=== PATIENT | male | born 1950 | race Caucasian/White ===

== ENCOUNTER 2023-03-02 05:55 | Day surgery (SDC) | payer MEDICARE, SELFPAY ==
[2023-02-20 09:01] VITALS: BMI 21.1
[2023-02-20 12:58] VITALS: BMI 20.9
[2023-03-02 06:45] VITALS: BMI 20.9
[2023-03-02 06:46] VITALS: BP 103/66; PULSE 64; RESP 14; TEMP 36.8; O2SAT 100
--- NOTE | 2023-03-02 07:14 | WPDANESEPPF ---
Anes - Initial Pre Proc Eval Procedure: Operation Date: 03/02/23 08:00 Proposed Procedures p Esophagogastroduodenoscopy - Roosevelt Montero MD s Diagnostic Colonoscopy - Roosevelt Montero MD Date/Time: 03/02/23 07:14 Surgeon: Roosevelt Montero MD Pre Op Diagnosis: Unspecified Abdominal Pain, Melena Patient Data Age: 72 Gender: M Height: 1.68 m Weight: 58.9 kg Last Vital Signs Temp 36.8 C 03/02/23 06:46 Pulse 64 03/02/23 06:46 Resp 14 03/02/23 06:46 BP 103/66 03/02/23 06:46 Pulse Ox 100 03/02/23 06:46 O2 Del Method Room Air 03/02/23 06:46 Allergies Allergy/AdvReac Type Severity Reaction Status Date / Time No Known Allergies Allergy Verified 03/02/23 06:42 Home Medications Medication Instructions Recorded Confirmed Type montelukast 10 mg tablet 10 mg PO DAILY 02/19/23 03/02/23 History naproxen sodium 220 mg capsule 220 mg PO BID PRN Mild Pain (Scale 02/19/23 03/02/23 History Score 1-4) pantoprazole 40 mg tablet,delayed 40 mg PO DAILY 02/19/23 03/02/23 History release polyethylene glycol 3350 17 17 g PO DAILY 02/19/23 03/02/23 History gram/dose oral powder (Miralax) trazodone 50 mg tablet 50 mg PO DAILY 02/19/23 03/02/23 History Patient hx anesthesia problems: none Family hx anesthesia problems: none Results Review: All pre-operative results and documents have been reviewed as part of the pre-operative evaluation. 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 Grandparent , age 60 Colon cancer Social History Social History (Updated 02/19/23 @ 11:04 by Joan Drummond MA) Smoking status: Former smoker Alcohol intake: former Substance use: unknown Substance use type: marijuana Living arrangements: with family Spiritual care concerns: No Anes - Eval Final PreProcedure Day of Procedure 03/02/23 07:14 Patient weight: normal Heart: regular rate and rhythm Lungs: clear to auscultation and normal air movement Airway: Mallampati scale class II Neurological: alert and oriented Last oral intake: >/= 8 hours ASA classification: II Emergent: no Anesthetic plan: proceed Anesthesia type and monitoring: general GIVS and standard monitoring Results Review: All pre-operative results and documents have been reviewed as part of the pre-operative evaluation. Informed Consent: The patient's anesthetic plan and its attendant risks and benefits were discussed with the patient/family/POA. Questions were solicited and answers provided to the satisfaction of the patient/family/POA.
[2023-03-02] MEDS: LACTATED RINGERS 1,000 ML 150 ML IV CONT (07:26)
--- NOTE | 2023-03-02 07:40 | PM.HPGS ---
History of Present Illness History of Present Illness Consent: Risks, benefits, and alternatives have been discussed and questions answered. Patient agrees to proceed with procedure. Chief complaint: Unspecified Abdominal Pain, Melena Narrative: Cole Aleman is a 72 year old male Presents for both colonoscopy and EGD. Patient has a distant history of non-Hodgkin's lymphoma. He underwent a splenectomy in 2015. Patient reports sent Sara has felt very weak. He may dark stools intermittently. Planes of difficulty swallowing with solid foods catching in his throat. He describes a rather vague diffuse abdominal discomfort. For this reason patient referred for both colonoscopy and EGD. some weight. He denies any overt weight loss. He denies any bruising or bleeding elsewhere . Recent lab work recur soon iron deficiency anemia. Review of Systems Review of Systems: Review of systems noncontributory. [facility] Past Medical History Medical History (Updated 03/02/23 @ 07:43 by Roosevelt Montero MD) Abdominal pain Gastric varices without bleeding Diagnosed in 2008 History of lymphoma 2008 Surgical History Surgical History (Updated 02/19/23 @ 13:09 by Carlos Jack MD) Acquired absence of spleen Splenectomy in 2008 and second splenectomy in Jun. 2015 History of tonsillectomy as a child Family History Family History (Updated 02/19/23 @ 13:52 by Carlos Jack MD) Father Lung cancer Mother , unknown cause of No problems noted. Grandparent , age 60 Colon cancer Social History Social History (Updated 02/19/23 @ 11:04 by Joan Drummond MA) Smoking status: Former smoker Alcohol intake: former Substance use: unknown Substance use type: marijuana Living arrangements: with family Spiritual care concerns: No Meds Home Medications and Allergies Home Medications Medication Instructions Recorded Confirmed Type montelukast 10 mg tablet 10 mg PO DAILY 02/19/23 03/02/23 History naproxen sodium 220 mg capsule 220 mg PO BID PRN Mild Pain (Scale 02/19/23 03/02/23 History Score 1-4) pantoprazole 40 mg tablet,delayed 40 mg PO DAILY 02/19/23 03/02/23 History release polyethylene glycol 3350 17 17 g PO DAILY 02/19/23 03/02/23 History gram/dose oral powder (Miralax) trazodone 50 mg tablet 50 mg PO DAILY 02/19/23 03/02/23 History Allergies Allergy/AdvReac Type Severity Reaction Status Date / Time No Known Allergies Allergy Verified 03/02/23 06:42 Vital Signs Vital Signs - 24 hr 03/02/23 06:46 Temperature 98.2 F Pulse Rate 64 Respiratory Rate 14 Blood Pressure 103/66 Pulse Oximetry 100 Oxygen Delivery Room Air Exam Narrative: Physical exam reveals patient to be alert. Vital signs stable. HEENT exam is unremarkable. Patient is anicteric. Lungs are clear to auscultation and Percussion.heart is without murmur or extra sounds. Abdomen bowel sounds are present soft nontender with no organomegaly. Renal rectal exam is normal. Assessment and Plan Assessment and plan (1) Abdominal pain: Qualifiers: Abdominal location: unspecified location Qualified Code(s): R10.9 - Unspecified abdominal pain Code(s): R10.9 - Unspecified abdominal pain Status: Acute Assessment and Plan: Patient has rather vague abdominal discomfort. For this reason both colonoscopy and EGD are advised. (2) History of lymphoma: Code(s): Z85.72 - Personal history of non-Hodgkin lymphomas Status: Acute Assessment and Plan: Distant history of lymphoma. Appears to be resolved at present. (3) CHRISTOPHER (iron deficiency anemia): Code(s): D50.9 - Iron deficiency anemia, unspecified Status: Acute Assessment and Plan: Patient has iron deficient indices. Ferritin was not evaluated. Stool Hemoccult not obtain but patient does have history of dark stools suggesti
[2023-03-02 08:42] VITALS: BP 111/65; PULSE 50; RESP 18; O2SAT 100
[2023-03-02 08:52] VITALS: BP 122/60; PULSE 54; RESP 18; O2SAT 100
[2023-03-02 09:02] VITALS: BP 125/62; PULSE 51; RESP 18; O2SAT 100
--- NOTE | 2023-03-02 09:56 | WPDANESPN ---
Anes - Prog Note Post-Op Date/Time: 03/02/23 09:56 Cardiovascular status: normal Respiratory status: normal Airway patency: baseline Mental status: baseline Post-Op hydration status: normal Vital Signs: Last Vital Signs Temp 36.8 C 03/02/23 06:46 Pulse 51 L 03/02/23 09:02 Resp 18 03/02/23 09:02 BP 125/62 03/02/23 09:02 Pulse Ox 100 03/02/23 09:02 O2 Del Method Room Air 03/02/23 09:02 Pain Score (VAS): 0 I/O: Intake & Output 03/01/23 03/02/23 03/02/23 23:59 07:59 15:59 Intake Total 300 Balance 300 Post-procedural complaints: none Patient Feedback: Patient satisfied with anesthetic care. Other Findings: Patient vital signs back to baseline. Patient denies nausea and vomiting. Patient's pain under control. Patient OK for discharge.
== END 2023-03-02 09:38 | disposition home or self-care (01) ==
PROVIDERS: PCP Family Medicine; Visit Provider Internal Medicine Gastroenterology
PROC: 0DJ08ZZ Inspection of Upper Intestinal Tract, Via Natural or Artificial Opening Endoscopic (ICD-10-PCS; CPT 43235; principal; 2023-03-02 08:00)
PROC: 0DJD8ZZ Inspection of Lower Intestinal Tract, Via Natural or Artificial Opening Endoscopic (ICD-10-PCS; CPT 45378; 2023-03-02 08:00)
DX: D50.9 Iron deficiency anemia, unspecified (principal); D37.8 Neoplasm of uncertain behavior of other specified digestive organs; K64.8 Other hemorrhoids; R13.19 Other dysphagia
CPT/HCPCS: 45380; 43450

== ENCOUNTER 2023-03-02 09:00 | Outpatient (NON) | payer MEDICARE, SELFPAY | END 2023-03-02 09:01 | disposition home or self-care (01) | PROVIDERS: PCP Family Medicine; Visit Provider Internal Medicine Gastroenterology | DX: C18.0 Malignant neoplasm of cecum (principal); K21.9 Gastro-esophageal reflux disease without esophagitis | CPT/HCPCS: 88305 ==

== ENCOUNTER 2023-03-02 09:21 | Outpatient (CLI) | payer MEDICARE, SELFPAY ==
[2023-03-02 19:31] LABS: Alanine Aminotransferase 14 U/L (6-50); Albumin Level 4.1 g/dL (3.5-5.1); Alkaline Phosphatase 76 U/L (38-126); Aspartate Amino Transferase 63 U/L (17-59); Bilirubin,Total 0.7 mg/dL (0.2-1.3)
[2023-03-02 19:59] LABS: Carcinoembryonic Antigen 1.9 ng/mL (0.0-3.0)
[2023-03-02 20:17] LABS: Hematocrit 27.1 % (42.0-52.0); Hemoglobin 8.3 g/dL (14.0-18.0); Mean Corpuscular HGB Conc 30.6 g/dl (32-36); Mean Corpuscular Hemoglobin 24.5 pg (26-34); Mean Corpuscular Volume 79.9 fl (80-100); Platelet Count Result 358 k/mm3 (150-375); Red Blood Count 3.39 M/mm3 (4.6-6.20); Red Cell Distribution Width 17.1 % (11.5-14.5); White Blood Count 5.9 K/mm3 (4.5-10.0)
[2023-03-02 21:19] LABS: Band Neutrophils Percent 1 % (0-6); Eosinophils Absolute Manual 0.47 K/mm3 (0.02-0.5); Eosinophils Percent Manual 8 % (0-4); Lymphocytes Absolute Manual 1.18 K/mm3 (1.1-4.5); Lymphocytes Percent Manual 20 % (18-44); Monocytes Absolute Manual 0.35 K/mm3 (0.1-0.90); Monocytes Percent Manual 6 % (3-9); Neutrophils Absolute Manual 3.89 K/mm3 (1.3-6.7); Neutrophils Percent Manual 65 % (46-73); Total Cells Counted 100
[2023-03-02 21:21] LABS: Anisocytosis 1+ (NORMAL); Platelet Estimate Adequate (Adequate); Poikilocytosis 1+ (NORMAL)
[2023-03-02 21:23] LABS: Ovalocytes 1+ (NORMAL); Target Cells 1+ (NORMAL)
[2023-03-02 21:24] LABS: Acanthocytes 1+ (NORMAL); Burr Cells 1+ (NORMAL)
[2023-03-02 21:33] LABS: Schistocytes 1+ (NORMAL)
== END 2023-03-02 09:22 | disposition home or self-care (01) ==
PROVIDERS: Internal Medicine Gastroenterology; PCP Family Medicine; Visit Provider Physician Assistant Surgical
DX: R10.9 Unspecified abdominal pain (principal)
CPT/HCPCS: 36415; 80076; 82378; 85025; 88305

== ENCOUNTER → 2023-03-09 09:03 | Outpatient (CLI) | payer MEDICARE, SELFPAY ==
--- NOTE | ~2023-03-09 | CT_ITS ---
CT of the Abdomen and Pelvis: Indication: Colon cancer Technique: 2.5 mm axial scans were obtained through the abdomen and pelvis following intravenous adm inistration of 100 cc of Omnipaque 350. Dose reduction technique was used on this scan by utilizing a utomated exposure control and iterative reconstruction technique. The dose-length product (DLP) was 2 88.47 mGy-cm. COMPARISON: 11/04/2018 Findings: Scans through the lung bases are unremarkable. There are numerous hypodense hepatic masses scattered throughout the liver, consistent with metastati c disease, with largest individual lesion measuring approximately 3.5 cm in diameter. The pancreas, g allbladder, adrenals and kidneys are within normal limits. Patient is status post splenectomy with pr obable splenule/splenosis. There are atherosclerotic calcifications of the aorta. No lymphadenopathy . There is probable area of circumferential wall thickening of the hepatic flexure/proximal transverse colon, which could reflect colonic adenocarcinoma. No claire bowel obstruction clearly evident. Images through the pelvis were performed. Urinary bladder unremarkable. There is a 3.4 x 2.3 cm area of avid enhancement in the left side of the prostate gland. No ascites. Impression: Area of segmental wall thickening at the hepatic flexure/proximal transverse colon, consistent with c olonic adenocarcinoma. Numerous hepatic metastases, as detailed above. 3.4 x 2.3 cm area of avid enhancement within the left side of the prostate gland, indeterminate. Prim sang prostatic neoplasm is not excluded. Correlate clinically. Consider additional workup as indicated . Reviewed, dictated and finalized at [facility]. Impression: Area of segmental wall thickening at the hepatic flexure/proximal transverse co esther, consistent with colonic adenocarcinoma. Numerous hepatic metastases, as detailed above. 3.4 x 2.3 cm area of avid enhancement within the left side of the prostate glan d, indeterminate. Primary prostatic neoplasm is not excluded. Correlate clinica lly. Consider additional workup as indicated.
[2023-03-09 10:21] LABS: Estimated Glomerular Filt Rate > 60
== END ==
PROVIDERS: Visit Provider Surgery
DX: C18.2 Malignant neoplasm of ascending colon (principal); K63.89 Other specified diseases of intestine
CPT/HCPCS: 74177; Q9967

== ENCOUNTER 2023-03-10 08:01 | Outpatient (CLI) | payer MEDICARE, SELFPAY ==
--- NOTE | 2023-03-10 09:19 | ECG_ITS ---
Measurements Intervals [place] Rate: 51 P: 94 CO: 165 QRS: 58 QRSD: 88 T: 73 QT: 441 QTc: 409 Interpretive Statements SINUS BRADYCARDIA WITH OCCASIONAL SUPRAVENTRICULAR PREMATURE COMPLEXES NO PREVIOUS ECG AVAILABLE FOR COMPARISON Electronically Signed On 03-10-2023 15:01:41 CDT by Luiza Garcia M.D.
[2023-03-10 09:37] LABS: Hematocrit 28.1 % (42.0-52.0); Hemoglobin 8.8 g/dL (14.0-18.0)
== END 2023-03-10 08:02 | disposition home or self-care (01) ==
LOC: ANHSURGERY 08:06
PROVIDERS: Anesthesiology; PCP Family Medicine; Visit Provider Surgery
DX: Z01.818 Encounter for other preprocedural examination (principal); C18.2 Malignant neoplasm of ascending colon; R93.1 Abnormal findings on diagnostic imaging of heart and coronary circulation
CPT/HCPCS: 36415; 85014; 85018; 86850; 86900; 86901; 93005

== ENCOUNTER 2023-03-11 18:35 | Emergency (ER) | payer MEDICARE, SELFPAY ==
[2023-03-11] VITALS (8 sets, daily range): BP systolic 120–138; BP diastolic 47–71; PULSE 54–67; RESP 15–18; TEMP 36.6; O2SAT 97–100
--- NOTE | ~2023-03-11 | CT_ITS ---
EXAMINATION: CT thoracic lumbar wo con DATE: 03/11/2023 22:19 INDICATION: Mid back pain. Fall. TECHNIQUE: Computed tomography (CT) of the thoracic and lumbar spine was performed without intravenou s contrast. Automated exposure control and iterative reconstruction technique were employed. The dose -length product was 456.21 mGy-cm. COMPARISON: CT abdomen and pelvis 03/09/2023, chest CT 11/04/2018 FINDINGS: CT THORACIC SPINE: A calcified left lung nodule and calcified left hilar lymph nodes are consistent w ith old granulomatous disease. There is mild scarring at the lung apices. There is a 10 mm nodule in right lung upper lobe, stable from 11/04/2018, likely benign. There are multiple hypodense masses in t he liver that are better seen on the CT from 03/09/2023. There is 5 degrees dextrocurvature of thorac ic spine. There is kyphosis of thoracic spine. There is mild chronic anterior wedging of multiple cesar tebral bodies. There is a compression fracture of T12 without height loss. There are bridging endplat e osteophytes at multiple levels in the spine, consistent with diffuse idiopathic skeletal hyperostos is (DISH). There is multilevel facet joint osteoarthritis. There is multilevel mild neural foraminal stenosis bilaterally. On the left, there is moderate neural foraminal stenosis at T10-T11. There is m ild central canal stenosis at T6-T7. CT LUMBAR SPINE: There is focal wall thickening of hepatic flexure of the colon, consistent with prim sang malignancy. Bone alignment is normal. There is mild chronic anterior wedging of L1 vertebral body . There is mildly decreased disc height at L4-L5 and severely decreased disc height at L5-S1. The fol lowing disc levels are specifically discussed: L1-L2: The disc does not extend beyond the endplate margin. There is mild bilateral facet joint osteo arthritis. There is mild right neural foraminal stenosis. There is no central canal stenosis. L2-L3: The disc does not extend beyond the endplate margin. There is mild bilateral facet joint hyper trophy. There is mild right neural foraminal stenosis. There is no central canal stenosis. L3-L4: The disc is bulging. There is mild bilateral facet joint osteoarthritis. There is mild bilater al neural foraminal stenosis. There is mild central canal stenosis. L4-L5: The disc is bulging. There is severe bilateral facet joint osteoarthritis. There is moderate b ilateral neural foraminal stenosis. There is mild central canal stenosis. L5-S1: The disc is bulging. There is severe bilateral facet joint osteoarthritis. There is moderate b ilateral neural foraminal stenosis. There is mild central canal stenosis. IMPRESSION: 1. Acute T12 compression fracture. 2. Moderate thoracolumbar spondylosis. 3. DISH. 4. Colon mass, consistent with primary malignancy. Liver masses, consistent with metastatic disease. Reviewed, dictated and finalized at location E. IMPRESSION: 1. Acute T12 compression fracture. 2. Moderate thoracolumbar spondylosis. 3. DISH. 4. Colon mass, consistent with primary malignancy. Liver masses, consistent wit h metastatic disease.
--- NOTE | 2023-03-11 21:31 | ED.FALL ---
HPI - Fall General Chief Complaint: Fall Stated Complaint: fall off 6 ft ladder Time Seen by Provider: 03/11/23 21:17 History of Present Illness HPI Narrative: Patient is a 72-year-old male presenting after falling off a ladder. Patient states that he was about 6 feet up when the ladder slipped and he fell straight back landing on his mid back. He did not strike his head or lose consciousness. States that he immediately had severe mid back pain. No numbness or weakness. No saddle anesthesia or loss of bladder or bowels. He has been able to ambulate but he continues to have a lot of pain so he came in for evaluation. No further complaints. Related Data Home Medications Medication Instructions Recorded Confirmed montelukast 10 mg tablet 10 mg PO DAILY 02/19/23 03/10/23 naproxen sodium 220 mg capsule 220 mg PO DAILY PRN Mild Pain 02/19/23 03/10/23 (Scale Score 1-4) pantoprazole 40 mg tablet,delayed 40 mg PO DAILY 02/19/23 03/10/23 release polyethylene glycol 3350 17 17 g PO DAILY 02/19/23 03/10/23 gram/dose oral powder (Miralax) trazodone 50 mg tablet 50 mg PO HS 02/19/23 03/10/23 Allergies Allergy/AdvReac Type Severity Reaction Status Date / Time No Known Allergies Allergy Verified 03/11/23 21:15 Review of Systems Review of Systems: All systems reviewed & are unremarkable except as noted in HPI and below PMFSH Past Medical History Medical History Abdominal pain 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 Grandparent , age 60 Colon cancer Other Diabetes mellitus Social History Social History Smoking packs per day: 2 Smoking cigarettes per day: 40.0 Years smoked: 35 Smoking pack-years: 70.00 Smoking status: Former smoker Tobacco type: cigarettes Smoking end date: 05/25/99 Alcohol intake: former Substance use: unknown Substance use type: marijuana Living arrangements: with family Spiritual care concerns: No Exam Narrative: GENERAL: Nontoxic, no acute distress, pleasant and cooperative HEAD: Normocephalic, atraumatic. EYES: PERRLA and EOMI. ENT: Grossly unremarkable NECK: Supple. No midline tenderness CHEST: Clear to auscultation. No respiratory distress. HEART: Regular rate and rhythm ABDOMEN: Soft, nontender, nondistended BACK: Midline tenderness of lower thoracic/upper lumbar spine; no flank tenderness EXTREMITIES: Normal range of motion. No edema. SKIN: Warm, dry, no rash. NEURO: No focal deficits. Alert and oriented x3. 5 out of 5 strength in all extremities, ambulating without difficulty PSYCH: Normal mood and affect. Course Vital Signs Vital signs: Vital Signs Temperature 98 F 03/11/23 18:43 Pulse Rate 54 L 03/11/23 18:43 Respiratory Rate 18 03/11/23 18:43 Blood Pressure 120/47 L 03/11/23 18:43 Pulse Oximetry 100 03/11/23 18:43 Oxygen Delivery Room Air 03/11/23 18:43 Temperature 98 F 03/11/23 18:43 Pulse Rate 65 03/12/23 00:05 Respiratory Rate 14 03/12/23 00:05 Blood Pressure 119/61 03/12/23 00:05 Pulse Oximetry 97 03/12/23 00:05 Oxygen Delivery Room Air 03/11/23 18:43 MDM - Fall MDM Narrative Medical decision making narrative: 72-year-old male presenting with back pain following a fall off a ladder. Exam remarkable for the above. Vitals are stable. He does have point tenderness over his lower thoracic/upper adelita
[2023-03-11] MEDS: oxyCODONE/ACETAMINOPHEN (*CRX) 5-325 MG TABLET 1 TABLET PO (21:39)
[2023-03-12 00:05] VITALS: BP 119/61; PULSE 65; RESP 14; O2SAT 97
== END 2023-03-12 00:06 | disposition home or self-care (01) ==
PROVIDERS: Emergency Provider Emergency Medicine
DX: S22.000A Wedge compression fracture of unspecified thoracic vertebra, initial encounter for closed fracture (principal); Z79.1 Long term (current) use of non-steroidal anti-inflammatories (NSAID); Z79.899 Other long term (current) drug therapy; Z87.891 Personal history of nicotine dependence; W11.XXXA Fall on and from ladder, initial encounter
CPT/HCPCS: 72128; 72131; 99284; A9270

== ENCOUNTER 2023-03-27 08:15 | Outpatient (CLI) | payer MEDICARE, SELFPAY ==
[2023-03-16 15:17] VITALS: BMI 21.1
--- NOTE | 2023-03-16 15:18 | PC.NURSE ---
Addendum entered by Wilda Farley RN 03/16/23 15:54: PT AWARE OF TIME CHANGE FROM 1100 TO 1030 - WILL ARRIVE AT 0830 Original Note: Pre Radiology instructions Report to the outpatient [facility] on date __03/27/23___ at time __0900 for procedure Time: _1100___ YOU MAY BE MONITORED AT HOSPITAL FOR UP TO 4 HOURS AFTER YOUR PROCEDURE. A visitor will be allowed to accompany the patient into the hospital. You and your visitor will be asked to self-screen and do not enter if you have any COVID symptoms. A mask is OPTIONAL within the hospital. Patients are to have no food or drink 8 hours prior to procedure time (0300 AM) Driving will be restricted after the procedure, you must have a person to drive you home. Labs will be drawn in preop area and once reviewed, you will be taken to radiology area for procedure. When the procedure is completed, you will be taken to outpatient where you will be monitored for several hours. You may have one visitor in this area. Other than holding anti-coagulants, patient may take other medication(s) as scheduled. Prior to your appointment date patients are instructed to hold anti-coagulants after discussing with ordering provider to stop. If unable to discontinue anti-coagulants please notify radiologist. ? No aspirin or warfarin (Coumadin) for 7 days prior to the procedure. ? No clopidogrel (Plavix), ticagrelor (Brilinta), prasugrel (Effient) or dabigatran (Pradaxa) for 5 days prior to the procedure. ? No rivaroxaban (Xarelto), apixaban (Eliquis), dipyridamole (Aggrenox or Persantine) or cilostazol (Pletal) for 2 days prior to the procedure. Medications to discontinue per physician: ___N/A Date to take last dose: Please leave all valuables, including medications, at home the day of procedure. The hospital will not accept responsibility for valuables. Wear comfortable, loose fitting clothing.? Follow any additional instructions given to you from ordering provider. Telephone instructions given to ___PT and asked if any additional questions and then verbalized understanding. Patient advised to call scheduling provider office or registration scheduling [phone] if any additional questions.
[2023-03-27] VITALS (10 sets, daily range): BP systolic 120–158; BP diastolic 64–76; PULSE 50–56; RESP 14–18; TEMP 36.1; O2SAT 97–100
--- NOTE | ~2023-03-27 | US_ITS ---
EXAMINATION: US biopsy liver DATE: 03/27/2023 11:47 INDICATION: Metastatic colon cancer TECHNIQUE: The procedure including the risks and benefits was discussed with the patient. Risks discu ssed included bleeding and infection. The patient understood the risks and agreed to proceed. The sk in overlying the liver was prepped and draped in usual sterile fashion. Anesthetic was administered with 1% lidocaine subcutaneously. An 18 gauge core biopsy needle was advanced under continuous ultra sound observation to the lesion of interest. 4 core biopsy specimens were obtained. The needle was removed and the entry site was cleaned and dressed. Post procedure ultrasound demonstrated no hemorr henri. FINDINGS: Ultrasound images demonstrate multiple mildly hypoechoic nodules throughout the liver. Subs equent images demonstrate biopsy needle advanced through a 2.3 x 2.2 cm nodule at the caudal tip of t he right hepatic lobe. IMPRESSION: 1. Successful Ultrasound-guided biopsy of one of several hepatic masses concerning for metastatic dis ease. Reviewed, dictated and finalized at location A. IMPRESSION: 1. Successful Ultrasound-guided biopsy of one of several hepatic masses concern ing for metastatic disease.
[2023-03-27 10:16] LABS: Mean Platelet Volume 10.1 fl (7.4-10.4); Platelet Count Result 447 k/mm3 (150-375)
[2023-03-27 10:28] LABS: Prothrombin Time 13.8 Seconds (11.1-14.7)
--- NOTE | 2023-03-27 13:21 | SUR.PHASEII ---
1200 - Pt c/o pain in back from prior injury. Spoke with Dr Byers and asked if pt could take his already prescribed Percocet. Okay'ed by Dr Byers. Pt family had medication and gave to pt. after permission obtained.
== END 2023-03-27 15:35 | disposition home or self-care (01) ==
PROVIDERS: PCP Family Medicine; Referring Provider Surgery; Visit Provider Radiology Diagnostic Radiology
PROC: BF45ZZZ Ultrasonography of Liver (ICD-10-PCS; CPT 47000; principal; 2023-03-27 10:30)
DX: Z01.818 Encounter for other preprocedural examination (principal)
CPT/HCPCS: 36415; 47000; 76942; 85049; 85610; 88307; 88342

== ENCOUNTER 2023-04-02 08:16 | Outpatient (CLI) | payer MEDICARE, SELFPAY ==
--- NOTE | ~2023-04-02 | CT_ITS ---
EXAMINATION: CT abdomen pelvis wo con DATE: 04/02/2023 10:24 INDICATION: Cecal obstruction TECHNIQUE: Computed tomography (CT) of the abdomen and pelvis was performed without intravenous contr ast. Automated exposure control and iterative reconstruction technique were employed. The dose-length product was 225.46 mGy-cm. COMPARISON: 03/09/2023 FINDINGS: Lung bases are clear. Heart size is normal. Atherosclerotic coronary artery calcifications. No perica rdial or pleural effusion. There are multiple hypoechoic masses scattered throughout the liver consis tent with biopsy-proven metastatic disease. Postoperative changes in the subdiaphragmatic left upper lobe reportedly of a prior splenectomy with 3.5 x 2.5 similar likely recurrent splenule situated betw een the splenic flexure the colon, the stomach and upper pole of the left kidney. Gallbladder, pancre as, bilateral adrenal glands and kidneys are normal. Oral contrast material extends through the small bowel with minimal amount within the cecum at the ileocecal valve. Normal appendix. There is a large amount of stool in the proximal to mid colon proximal and distal to a relatively decompressed segmen t in the proximal transverse colon with additional thickening consistent with reported primary colon cancer. There is been interval resolution of a region of prior edematous. Wall thickening in the ani on of the hepatic flexure which may have been due to focal colitis of indeterminate etiology. A cecal dilation to suggest obstruction. Bladder is normal. Prostatomegaly. No free intraperitoneal gas or f luid. Persistent mesenteric lymphadenopathy along side the region of AP proximal transverse colon. Mo derate thoracolumbar spondylosis with bridging osteophytes at multiple levels consistent with diffuse idiopathic skeletal hyperostosis (DISH). Moderate bilateral hip osteoarthritis. IMPRESSION: 1. Large amount of stool in the proximal to mid colon on either side of the short segment of wall thi ckening at the proximal transverse colon consistent with primary colon cancer. This more likely relat ed to constipation and obstruction with no dilation of the colon proximal to the region of focal thic kening. 2. Focal mesenteric lymphadenopathy in the right upper quadrant along with multiple hepatic masses co nsistent with biopsy-proven metastatic disease. Reviewed, dictated and finalized at location A. [employer] IMPRESSION: 1. Large amount of stool in the proximal to mid colon on either side of the chi rt segment of wall thickening at the proximal transverse colon consistent with primary colon cancer. This more likely related to constipation and obstruction with no dilation of the colon proximal to the region of focal thickening. 2. Focal mesenteric lymphadenopathy in the right upper quadrant along with mult iple hepatic masses consistent with biopsy-proven metastatic disease.
== END 2023-04-02 08:17 | disposition home or self-care (01) ==
LOC: ANHIMG 08:19
PROVIDERS: PCP Family Medicine; Visit Provider Surgery
DX: C18.9 Malignant neoplasm of colon, unspecified (principal); C78.7 Secondary malignant neoplasm of liver and intrahepatic bile duct; R59.0 Localized enlarged lymph nodes; R16.0 Hepatomegaly, not elsewhere classified
CPT/HCPCS: 74176

== ENCOUNTER 2023-04-18 08:42 | Emergency (ER) | payer MEDICARE, SELFPAY ==
[2023-04-18] VITALS (41 sets, daily range): BP systolic 113–142; BP diastolic 60–97; PULSE 74–95; RESP 15–24; O2SAT 96–100
--- NOTE | ~2023-04-18 | XR_ITS ---
EXAMINATION: XR abdomen gastric tube insert INDICATION: Small bowel obstruction, NG placement TECHNIQUE: Portable AP KUB-NG at 1159 hours COMPARISON: None available FINDINGS: The tip of the nasogastric tube is in the stomach. The proximal side port is in the distal esophagus. There are multiple dilated loops of small bowel. A right internal jugular Port-A-Cath ends with its tip in the distal superior vena cava. IMPRESSION: 1. Tip of the nasogastric tube in the stomach with the proximal side port in the distal esophagus. Re commend advancing 5-6 cm. 2. Small bowel obstruction. Reviewed, dictated and finalized at location A. ON [facility] IMPRESSION: 1. Tip of the nasogastric tube in the stomach with the proximal side port in th e distal esophagus. Recommend advancing 5-6 cm. 2. Small bowel obstruction.
--- NOTE | ~2023-04-18 | XR_ITS ---
EXAMINATION: XR abdomen gastric tube rechec INDICATION: Nasogastric tube adjustment TECHNIQUE: Portable AP KUB-NG at 1242 hours COMPARISON: 1159 hours FINDINGS: The nasogastric tube has been advanced into the stomach. The proximal side port is just bey ond the gastroesophageal junction. Dilated loops of small bowel are again noted. IMPRESSION: 1. Nasogastric tube in the stomach. Reviewed, dictated and finalized at location A. 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
--- NOTE | ~2023-04-18 | CT_ITS ---
EXAMINATION: CT abdomen pelvis w con INDICATION: Constipation and nausea, colon cancer metastatic to the liver TECHNIQUE: Computed tomographic images of the abdomen and pelvis were obtained after the administrati on of 100 cc of Omnipaque 350 intravenous contrast. The dose-length product (DLP) was 335.45 mGy-cm. Automated exposure control and iterative reconstruction technique were employed. COMPARISON: 04/02/2023, 03/09/2023 FINDINGS: There are small pleural effusions. The heart size is normal. Mild bilateral gynecomastia is noted. Liquid contents are noted in the distal esophagus. There are greater than 20 intrahepatic met astases, which measure up to 3.5 cm, with interval increase in size. Changes of splenectomy are noted . The pancreas, gallbladder, and adrenal glands are normal. The kidneys are unremarkable. The small b owel is dilated and fluid-filled. The ascending and proximal transverse colon are also dilated and fl uid-filled with abrupt transition at an area of circumferential wall thickening and stricture in the proximal transverse colon. The distal colon is decompressed. There is mild mesenteric lymphadenopathy adjacent to the area of colonic stricture. There is a small volume of pelvic ascites. There is no fr ee intraperitoneal gas. There is asymmetric enhancement left prostate of unclear significance. There are bridging osteophytes at multiple levels in the spine, consistent with diffuse idiopathic skeletal hyperostosis (DISH). There is moderate thoracic and lumbar spondylosis. IMPRESSION: 1. 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 Recommend thomas gical evaluation. 2. Worsened hepatic metastatic disease. Reviewed, dictated and finalized at location A. INE INSTALLER IMPRESSION: 1. Malignant stricture of the proximal transverse colon resulting in bowel obst ruction. Recommend surgical evaluation. 2. Worsened hepatic metastatic disease.
[2023-04-18] MEDS: ONDANSETRON INJ 4 MG/2 ML VIAL IV PUSH (09:53)
[2023-04-18] MEDS: SODIUM CHLORIDE 0.9% IV 1,000 ML 999 ML IV CONT (09:53)
[2023-04-18 10:02] LABS: Hematocrit 29.7 % (42.0-52.0); Hemoglobin 9.6 g/dL (14.0-18.0); Mean Corpuscular HGB Conc 32.3 g/dl (32-36); Mean Corpuscular Hemoglobin 25.9 pg (26-34); Mean Corpuscular Volume 80.1 fl (80-100); Mean Platelet Volume 10.7 fl (7.4-10.4); Platelet Count Result 341 k/mm3 (150-375); Red Blood Count 3.71 M/mm3 (4.6-6.20); Red Cell Distribution Width 22.7 % (11.5-14.5); White Blood Count 9.3 K/mm3 (4.5-10.0)
[2023-04-18 10:08] LABS: Alanine Aminotransferase 16 U/L (6-50); Albumin Level 3.7 g/dL (3.5-5.1); Alkaline Phosphatase 163 U/L (38-126); Anion Gap 9 mmol/L (8-16); Aspartate Amino Transferase 32 U/L (17-59); Bilirubin,Total 0.7 mg/dL (0.2-1.3); Blood Urea Nitrogen 24 mg/dL (9-20); Carbon Dioxide 34 mmol/L (22-30); Chloride 87 mmol/L (98-107); Estimated Glomerular Filt Rate > 60; Glucose 110 mg/dL (65-110); Lactic Acid Reflex 1.9 mmol/L (0.7-2.0); Potassium 4.8 mmol/L (3.4-5.0); Sodium 130 mmol/L (137-145)
[2023-04-18 10:10] LABS: INR 1.1; Partial Thromboplastin Time 25.3 SECONDS (22.3-36.8); Prothrombin Time 14.5 Seconds (11.1-14.7)
[2023-04-18 10:14] LABS: Band Neutrophils Percent 26 % (0-6); Burr Cells 2+ (NORMAL); Eosinophils Absolute Manual 0.09 K/mm3 (0.02-0.5); Eosinophils Percent Manual 1 % (0-4); Lymphocytes Absolute Manual 0.46 K/mm3 (1.1-4.5); Monocytes Absolute Manual 0.93 K/mm3 (0.1-0.90); Monocytes Percent Manual 10 % (3-9); Neutrophils Absolute Manual 7.81 K/mm3 (1.3-6.7); Neutrophils Percent Manual 58 % (46-73); Platelet Estimate Adequate (Adequate); Poikilocytosis 1+ (NORMAL); Schistocytes None Seen (NORMAL); Total Cells Counted 100
[2023-04-18 10:15] LABS: Anisocytosis 1+ (NORMAL); Hypochromasia 1+ (NORMAL); Large Platelets Present; Target Cells 1+ (NORMAL)
--- NOTE | 2023-04-18 11:08 | ED.GENADULT ---
HPI - General Adult General Chief complaint: Abdominal Pain Stated complaint: CONSTIPATION Time Seen by Provider: 04/18/23 08:51 History of Present Illness HPI narrative: Patient is a 73-year-old male who presents to her with constipation. Ongoing for 5 days. Associated with nausea and vomiting as well as abdominal distention. Has history of a known colon mass. He is scheduled to start chemotherapy next week at [facility]. He has tried an enema without improvement. Originally seen by Dr. Palomares here and was evaluated for possible hemicolectomy but after finding perfuse hepatic metastases it was decided not to perform surgery and to start palliative chemo. Related Data Home Medications Medication Instructions Recorded Confirmed montelukast 10 mg tablet 10 mg PO DAILY 02/19/23 04/13/23 naproxen sodium 220 mg capsule 220 mg PO DAILY PRN Mild Pain 02/19/23 04/13/23 (Scale Score 1-4) pantoprazole 40 mg tablet,delayed 40 mg PO DAILY 02/19/23 04/13/23 release polyethylene glycol 3350 17 17 g PO DAILY 02/19/23 04/13/23 gram/dose oral powder (Miralax) trazodone 50 mg tablet 50 mg PO HS 02/19/23 04/13/23 Allergies Allergy/AdvReac Type Severity Reaction Status Date / Time No Known Allergies Allergy Verified 04/13/23 14:22 Review of Systems Review of Systems: All systems reviewed & are unremarkable except as noted in HPI and below Constitutional: Constitutional: Denies chills, Denies fatigue and Denies fever(s) ENT: Denies nasal congestion and Denies sore throat Cardiovascular: Cardiovascular: Reports no additional cardiovascular complaints Respiratory: Respiratory: Reports no additional respiratory complaints Gastrointestinal: Gastrointestinal: Reports abdominal pain, Reports bloating, Reports constipation, Reports nausea and Reports vomiting Genitourinary: Genitourinary: Reports no additional male genitourinary complaints [facility] Past Medical History Medical History (Updated 04/18/23 @ 17:45 by Iron Valdivia MD) Abdominal pain Colon cancer 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 Grandparent , age 60 Colon cancer Other Diabetes mellitus Social History Social History (Updated 04/13/23 @ 14:24 by AMY Padilla) Smoking packs per day: 2 Smoking cigarettes per day: 40.0 Years smoked: 35 Smoking pack-years: 70.00 Smoking status: Former smoker Tobacco type: cigarettes Smoking end date: 05/25/99 Alcohol intake: former Substance use: unknown Substance use type: marijuana Lack of Transportation: No Lack of Food: Never True Current Housing: I Have Housing Concerned About Future Housing: No Difficulty Paying Gas/Electric Bills: No Difficulty Paying for Meds: No Currently Unemployed: No Education: High School Diploma/GED Difficulty w/ Childcare or Family Care: No Living arrangements: with family Spiritual care concerns: No Exam Narrative: GENERAL: chronically ill-appearing, well-nourished, and in no acute distress. HEAD: Normocephalic, atraumatic. EYES: PERRL and EOMI. ENT: Mucous membranes moist. CHEST: Clear to auscultation. No respiratory distress. HEART: Regular rate and rhythm. Normal peripheral pulses. ABDOMEN: Soft, nontender, abdomen distended and tympanic to percussion.. EXTREMITIES: Normal range of motion. No edema. SKIN: Warm, dry, no rash. NEURO: Alert and oriented x3. PSYCH: Normal mood and affect. Course Course Emergency Course: [place]
--- NOTE | 2023-04-18 13:52 | PC.NURSE ---
Sanna from [facility] transfer center called this RN for triage for pt. Sanna states she will call back when she has a room assignment
[2023-04-18] MEDS: MORPHINE SULFATE (*CRX) 4 MG/ML INJ IV PUSH ×2 (16:00→18:59)
--- NOTE | 2023-04-18 17:45 | PC.NURSE ---
attempted to call report to JUANY Victor
== END 2023-04-18 19:01 | disposition short-term general hospital (02) ==
PROVIDERS: Emergency Provider Emergency Medicine; PCP Family Medicine
DX: K56.699 Other intestinal obstruction unspecified as to partial versus complete obstruction (principal); C18.9 Malignant neoplasm of colon, unspecified; C78.7 Secondary malignant neoplasm of liver and intrahepatic bile duct; Z85.72 Personal history of non-Hodgkin lymphomas; Z87.891 Personal history of nicotine dependence; Z90.81 Acquired absence of spleen
CPT/HCPCS: 36415; 74177; 80053; 83605; 85025; 85610; 85730; 96361; 96374; 96375; 96376; 99285; J2270; J2405; J7030; Q9967

== ENCOUNTER 2023-08-14 09:33 | Outpatient (RCR) | payer MEDICARE, SELFPAY ==
[2023-08-14 10:00] VITALS: BMI 20.2
== END 2023-11-02 15:06 | disposition home or self-care (01) ==
LOC: ANHWOC 09:33
PROVIDERS: PCP Family Medicine; Visit Provider Family Medicine
DX: Z93.2 Ileostomy status (principal)
CPT/HCPCS: 99214; G0463